=== PATIENT | female | born 1955 | race Caucasian/White ===

== ENCOUNTER 2019-10-27 12:07 | Outpatient (CLI) | payer OTHER ==
--- NOTE | 2019-10-27 13:27 | MRI ---
MRI BRAIN WITHOUT CONTRAST: HISTORY: Headache, persistent. COMPARISON: None. FINDINGS: No restricted diffusion is seen. No evidence of infarct, hemorrhage, midline shift, or abnormal extraaxial fluid collections are seen. The ventricular size is normal and the basilar cisterns patent. There are multiple foci of T2 prol ongation in the periventricular white matter, consistent with chronic small-vessel ischemic disease. There is mucosal disease in the paranasal sinuses. No tonsillar herniation is seen. IMPRESSION: 1. No evidence of acute intracranial process. 2. Chronic small-vessel ischemic disease. 3. Paranasal sinus disease. POS: OFF
== END 2019-10-27 12:08 | disposition home or self-care (01) ==
LOC: BICMRI 12:07
PROVIDERS: ATTEND Emergency Medicine
DX: R51 Headache (principal); I67.82 Cerebral ischemia; J32.9 Chronic sinusitis, unspecified
CPT/HCPCS: 70551

== ENCOUNTER 2020-05-18 13:18 | Outpatient (CLI) | payer OTHER ==
--- NOTE | 2020-05-18 14:26 | ULT ---
RIGHT AXILLARY ULTRASOUND: Date: 05/18/2020 HISTORY: Evaluation for lymphadenopathy. FINDINGS: Real-time imaging of the area of concern shows some small lymph nodes. The largest node measures 3.2 cm in maximum dimension. It is a nonspecific appearance. It does not have the typical hypoechoic feat ures of a worrisome node. IMPRESSION: Nonspecific axillary lymph nodes. I do not have any history if patient has had a recent mammogram. This may be helpful in further asses sment. POS: CAROLYNE
== END 2020-05-18 13:19 | disposition home or self-care (01) ==
LOC: BICULT 13:18
PROVIDERS: ATTEND Family Medicine
DX: R59.0 Localized enlarged lymph nodes (principal)
CPT/HCPCS: 76999

== ENCOUNTER 2020-06-04 13:26 | Outpatient (CLI) | payer OTHER ==
--- NOTE | 2020-06-04 14:01 | MMO ---
Bilateral MAMMO Bilat Screen [facility]. CLINICAL HISTORY: Patient is 64 years old and is seen for screening. The patient has no family history of breast cancer. The patient has no personal history of cancer. VIEWS: The views performed were: bilateral craniocaudal with tomosynthesis and bilateral mediolateral oblique with tomosynthesis. This study has been interpreted with the assistance of computer-aided detection. MAMMOGRAM FINDINGS: There are scattered fibroglandular densities. There are no suspicious masses, suspicious calcifications, or new areas of architectural distortion. IMPRESSION: THERE IS NO MAMMOGRAPHIC EVIDENCE OF MALIGNANCY. A ROUTINE FOLLOW-UP MAMMOGRAM IN 1 YEAR IS RECOMMENDED. THE RESULTS OF THIS EXAM WERE SENT TO THE PATIENT. ACR BI-RADS Category 1 - Negative MAMMOGRAPHY NOTE: 1. A negative mammogram report should not delay a biopsy if a dominant of clinically suspicious mass is present. 2. Approximately 10% to 15% of breast cancers are not detected by mammography. 3. Adenosis and dense breasts may obscure an underlying neoplasm. Reported by: ARACELIS STEEL MD Electonically Signed: [id number]
== END 2020-06-04 13:27 | disposition home or self-care (01) ==
LOC: BICMAMMO 13:26
PROVIDERS: ATTEND Emergency Medicine
DX: Z12.31 Encounter for screening mammogram for malignant neoplasm of breast (principal)
CPT/HCPCS: 77063; 77067